=== PATIENT | male | born 1945 | race Caucasian/White ===

== ENCOUNTER → 2021-02-20 09:48 | Outpatient (BNVA) | payer MEDICARE, BC, SELFPAY | PROVIDERS: PCP Neuromusculoskeletal Medicine & OMM; Referring Provider Neuromusculoskeletal Medicine & OMM; Visit Provider Psychiatry & Neurology Neurology | DX: G62.9 Polyneuropathy, unspecified (principal) | CPT/HCPCS: 99204 ==

== ENCOUNTER → 2021-05-14 08:44 | Outpatient (BNVA) | payer MEDICARE, BC, SELFPAY | PROVIDERS: PCP Neuromusculoskeletal Medicine & OMM; Referring Provider Neuromusculoskeletal Medicine & OMM; Visit Provider Psychiatry & Neurology Neurology | DX: R26.89 Other abnormalities of gait and mobility (principal) | CPT/HCPCS: 95908 ==

== ENCOUNTER 2021-06-09 02:58 | Outpatient (CLI) | payer MEDICARE, BC, SELFPAY ==
--- NOTE | 2021-06-09 07:00 | DI.MRI_ITS ---
Exam(s) MR THORACIC SPINE WO EXAM: MR THORACIC SPINE WO CLINICAL HISTORY: ?post column d/o, balance disorder, R26.89. TECHNIQUE: Multiplanar multisequence MRI of the Thoracic spine was performed. CONTRAST MATERIAL: Noncontrast COMPARISON: MR MR CERVICAL SPINE WO from 06/09/2021 MR MR CERVICAL SPINE WO from 06/09/2021 FINDINGS: Bones: The vertebral body heights are well maintained. Alignment is satisfactory. The signal characte ristics are unremarkable. Cord: The thoracic cord is normal size and signal intensity. No intrinsic cord lesion is present. Discs: Osteophytes projecting anteriorly. No disc herniation or posterior bulge is present. No cent ral canal stenosis or neural foraminal narrowing. Soft tissues: Normal. Noncontrast IMPRESSION: degenerative disc changes with osteophytes projecting anteriorly. No neural foraminal narrowing or central canal stenosis. Normal cord signal. DATA REPOSITORY:
--- NOTE | 2021-06-09 07:00 | DI.MRI_ITS ---
Exam(s) MR CERVICAL SPINE WO EXAM: MR CERVICAL SPINE WO CLINICAL HISTORY: gait imbalance; posterior column def?, balance disorder, R26.89 TECHNIQUE: Multiplanar multisequence MRI of the cervical spine was performed without intravenous con trast. COMPARISON: No exams were available for comparison FINDINGS: Exam is limited by patient motion. BONES: Vertebral body heights are maintained. Intervertebral disc spaces are normal. Alignment is nor mal. Bone marrow signal intensity is within normal limits. High T1 signal lesion in the anterior C5 vertebral body and T3 vertebral body consistent with hemangiomas. CERVICAL CORD: Craniovertebral junction is unremarkable. The cervical cord is normal size and signal intensity. SOFT TISSUES: Unremarkable. C2-3: No disc herniation or bulge is identified. C3-4: No disc herniation or bulge is identified. C4-5: Moderate loss of disc height. Circumferentially projecting osteophytes encroach upon the centr al canal as well as both neural foramen.. C5-6: Marked loss of disc height. Concentric disc osteophytes encroaching upon the central canal and neural foramen. C6-7: No disc herniation or bulge is identified. C7-T1: No disc herniation or bulge is identified. IMPRESSION: Limited exam due to patient motion. Disc osteophytes cause moderate central canal stenosis at see se e 4 5 and C5-6 as well as bilateral neural foraminal narrowing. Cord signal is grossly normal. DATA REPOSITORY:
== END 2021-06-09 03:18 ==
PROVIDERS: PCP Neuromusculoskeletal Medicine & OMM; Visit Provider Psychiatry & Neurology Neurology
DX: R26.89 Other abnormalities of gait and mobility (principal); M48.02 Spinal stenosis, cervical region; M25.78 Osteophyte, vertebrae
CPT/HCPCS: 36415; 72141; 72146; 84432; 84443; 86800

== ENCOUNTER 2021-06-09 23:15 | Outpatient (CLI) | payer MEDICARE, BC, SELFPAY ==
[2021-06-09 11:47] LABS: TSH 0.03 uIU/mL (0.36-3.74)
[2021-06-11 10:42] LABS: Thyroglobulin Antibody <1.8 IU/mL (<1.8); Thyroglobulin Tumor Marker 8.9 ng/mL
== END 2021-06-09 23:16 | disposition home or self-care (01) ==
LOC: LBO 23:15
PROVIDERS: PCP Neuromusculoskeletal Medicine & OMM; Visit Provider Preventive Medicine Undersea and Hyperbaric Medicine
DX: C73 Malignant neoplasm of thyroid gland (principal)
CPT/HCPCS: 36415; 84432; 84443; 86800

== ENCOUNTER → 2021-06-23 08:44 | Outpatient (BNVA) | payer MEDICARE, BC, SELFPAY | PROVIDERS: PCP Neuromusculoskeletal Medicine & OMM; Referring Provider Neuromusculoskeletal Medicine & OMM; Visit Provider Psychiatry & Neurology Neurology | DX: R26.89 Other abnormalities of gait and mobility (principal); G95.9 Disease of spinal cord, unspecified | CPT/HCPCS: 99213 ==

== ENCOUNTER → 2024-04-10 09:33 | Outpatient (BNVA) | payer MEDICARE, BC, SELFPAY | PROVIDERS: PCP Neuromusculoskeletal Medicine & OMM; Referring Provider Neuromusculoskeletal Medicine & OMM; Visit Provider Student in an Organized Health Care Education/Training Program | DX: M17.11 Unilateral primary osteoarthritis, right knee (principal) | CPT/HCPCS: 99213 ==

== ENCOUNTER 2024-05-11 04:06 | Outpatient (CLI) | payer MEDICARE, BC, SELFPAY ==
[2024-05-11 15:47] LABS: HGB 14.7 g/dL (13.5-17.5); MCH 32.9 pg (27.0-33.0); MCHC 33.4 % (32.0-36.0); MCV 98 fL (80-95); MPV 9.3 fL (8.0-11.0); Platelet Count 174 10^3/uL (130-400); RBC 4.47 10^6/uL (4.36-5.78); RDW 12.9 % (11.8-14.1); RDW-SD 46.7 fL; WBC 5.46 10^3/uL (4.4-10.8)
[2024-05-11 16:19] LABS: Anion Gap 10.7 mmol/L (3-11); BUN 14 mg/dL (7-18); CO2 24.3 mmol/L (21.0-32.0); CREATININE 0.9 mg/dL (0.70-1.30); Calcium 9.4 mg/dL (8.5-10.1); Chloride 105 mmol/L (98-107); Estimated GFR 87.42 (mL/min/1.73m2); Glucose 98 mg/dL (74-106); Potassium 4.1 mmol/L (3.5-5.1); Sodium 140 mmol/L (136-145); TSH (W/Ref FT4) 0.08 uIU/mL (0.36-3.74)
[2024-05-11 16:37] LABS: FREE T4 1.63 ng/dL (0.76-1.46)
== END 2024-05-11 04:07 | disposition home or self-care (01) ==
LOC: LBO 04:06
PROVIDERS: PCP Neuromusculoskeletal Medicine & OMM; Visit Provider Student in an Organized Health Care Education/Training Program
DX: M17.11 Unilateral primary osteoarthritis, right knee (principal); Z01.818 Encounter for other preprocedural examination
CPT/HCPCS: 36415; 80048; 85027; 77073; 84439; 84443

== ENCOUNTER 2024-05-11 16:03 | Outpatient (CLI) | payer MEDICARE, BC, SELFPAY ==
--- NOTE | 2024-05-11 15:12 | DI.RAD_ITS ---
Exam(s) XR STANDING ALIGNMENT EXAM: XR STANDING ALIGNMENT CLINICAL HISTORY: TKR Planning. TECHNIQUE: 2D digital imaging was performed. COMPARISON: CR XR KNEE 3V RT from 11/25/2023 FINDINGS: 3 views Again noted is a left knee prosthesis which appears unchanged. Advanced degenerative changes in the medial compartment of the right knee are again noted, similar to previous. Left hip appears unremark able. There is no joint space narrowing in either hip. However on the right side there is a 1.6 x 0 .6 cm calcific density just above the femoral neck and another smaller oval 7 x 6 mm calcific density . These may be within the right hip joint although difficult to assess accurately without additional views. Both ankles appear unremarkable. IMPRESSION: Stable unchanged appearance of left hip prosthesis. Stable advanced degenerative changes right knee Two adjacent calcific densities are seen adjacent to the lower right femoral neck on these frontal vi ews. If clinically indicated additional views of the right hip can be performed for more accurate lo calization of these calcifications. There is vascular calcification in the posterior tibial arteries in both calves as well as within the peroneal arteries bilaterally. DATA REPOSITORY: RADIATION DOSE DELIVERED:
== END 2024-05-11 16:04 | disposition home or self-care (01) ==
LOC: DIORS 16:04
PROVIDERS: PCP Neuromusculoskeletal Medicine & OMM; Visit Provider Physician Assistant
DX: M17.11 Unilateral primary osteoarthritis, right knee (principal); Z01.818 Encounter for other preprocedural examination
CPT/HCPCS: 77073

== ENCOUNTER 2024-05-23 10:38 | Observation (INO) | payer MEDICARE, BC, SELFPAY ==
[2024-05-23] VITALS (58 sets, daily range): BP systolic 68–156; BP diastolic 38–100; PULSE 37–77; RESP 10–19; TEMP 36–37.2; O2SAT 93–98; BMI 34.0
--- NOTE | 2024-05-23 08:14 | W.ANESPRE ---
General Info Date of Service Date Performed: 05/23/24 Height: 5 ft 9 in Weight: 104.7 kg Body Mass Index (BMI): 34.0 Surgical Procedure: Operation Date: 05/23/24 14:25 Proposed Procedure Side Surgeon p Knee Total Arthroplasty Right Alex Will MD Meds Allergies and Home Medications Allergies Allergy/AdvReac Type Severity Reaction Status Date / Time No Known Allergies Allergy Verified 05/23/24 11:19 Home Medication ?Medication ?Instructions ?Recorded tamsulosin 0.4 mg capsule 0.4 mg PO QHS 11/25/20 acetaminophen 500 mg capsule 500 mg PO Q6H PRN 02/17/24 ibuprofen 200 mg capsule 200 mg PO Q6H PRN 02/17/24 levothyroxine 150 mcg capsule 150 mcg PO DAILY 02/17/24 acetaminophen 650 mg 650 mg PO Q12H PRN 05/23/24 tablet,extended release (8 Hour Pain Reliever) Current Visit Medications: Current Medications Generic Name Dose Route Start Last Admin Trade Name Freq PRN Reason Stop Dose Admin Acetaminophen 1,000 mg 05/23/24 06:00 Acetaminophen 500 Mg Tab PO 05/23/24 23:59 PREOP DRISS Celecoxib 400 mg 05/23/24 06:00 Celecoxib 200 Mg Cap PO 05/23/24 23:59 PREOP DRISS Gabapentin 300 mg 05/23/24 06:00 Gabapentin 300 Mg Cap PO 05/23/24 23:59 PREOP DRISS Ringer's Solution 1,000 mls @ 80 mls/hr 05/23/24 06:00 IV 05/23/24 23:59 INFUSION DRISS Cefazolin Sodium/Dextrose 2 gm in 50 mls @ 100 mls/hr 05/23/24 06:00 Ancef Duplex IVPB 05/23/24 23:59 PREOP DRISS Tranexamic Acid/Sodium Chloride 1,000 mg in 100 mls @ 600 mls/hr 05/23/24 06:00 IVPB 05/23/24 23:59 PREOP DRISS IV Miscellaneous Supplies 1 each 05/23/24 06:00 Iv Access IV 05/23/24 23:59 DIRECTED DRISS Sodium Chloride 0 ml 05/23/24 06:00 Normal Saline Flush 10 Ml Syr IV 05/23/24 23:59 PRN PRN Sodium Chloride 0 ml 05/23/24 06:00 Normal Saline 10 Ml Vial IJ 05/23/24 23:59 DIRECTED PRN Sterile Water 0 ml 05/23/24 06:00 Water,Injection,Sterile 10 Ml Vial IJ 05/23/24 23:59 DIRECTED PRN PFSH Active Problems Active Problems: Problem Status Onset Code Osteoarthritis of right knee Acute M17.11 Cervical myelopathy Acute G95.9 Balance disorder Acute R26.89 Peripheral neuropathy Acute G62.9 Medical History Medical History Nephrolithiasis Foot fracture, left Nocturia Urinary incontinence Snoring Disorder of hyperalimentation Osteoarthritis of carpometacarpal joint of thumb Osteoarthritis of knee Idiopathic osteoarthritis BPH (benign prostatic hyperplasia) Urinary tract obstruction Chronic rhinitis Hyperlipidemia Testicular hypofunction Hyperthyroidism Malignant neoplasm thyroid BCC (basal cell carcinoma) Surgical History Surgical History Status post total left knee replacement (07/20/23) 07/20/2023 Dr Chowdhury- [facility] Orthopedics S/P ORIF (open reduction internal fixation) fracture left foot History of tonsillectomy History of appendectomy History of thyroidectomy History of esophagogastroduodenoscopy (EGD) Hx of colonoscopy History of urethral stent History of excision of lesion Tobacco Smoking/Tobacco Use Status: Never Alcohol Alcohol Intake: current Alcohol intake frequency: a few times a week Alcohol type: beer, wine and hard liquor Substance Use Substance use: Never Vital Signs and Lab Results Vital Signs Most Recent Vital Signs in EMR: Temp Pulse Resp BP Pulse Ox 36.6 C 45 L 16 113/66 96 05/23/24 11:09 05/23/24 11:09 05/23/24 11:09 05/23/24 11:09 05/23/24 11:09 Lab Results Blood Type / Crossmatch: No Data to Display Complete Blood Count: White Blood Count 5.46 10^3/uL (4.4-10.8) 05/11/24 15:33 Red Blood Count 4.47 10^6/uL (4.36-5.78) 05/11/24 15:33 Hemoglobin 14.7 g/dL (13.5-17.5) 05/11/24 15:33 Hematocrit 44.0 % (40.0-50.0) 05/11/24 15:33 Platelet Count 174 10^3/uL (130-400) 05/11/24 15:33 Complete Metabolic Panel: Sodium 140 mmol/L (136-145) 05/11/24 15:33 Potassium 4.1 mmol/L (3.5-5.1) 05/11/24 15:33 Chloride 105 mmol/L (98-107) 05/11/24 15:33 Carbon Dioxide 24.3 mmol/L (21.0-32.0) 05/11/24 15:33 BUN 14 mg/dL (7-18) 05/11/24 15:33 Creatinine 0.9 mg/dL (0.70-1.30) 05/11/24 15:33 Est GFR (CKD-EPI 2020) 87.42 (mL/min/1.73m2) 05/11/24 15:33 Calcium 9.4 mg/dL (8.5-10.1) 05/11/24 15:33 Glucose 98 mg/dL (74-106) 05/11/24 15:33 Liver Function Panel: No Data to Display Coagulation Panel: No Data to Display Cardiac Panel: No Data to Display Arterial Blood Gas: No Data to Display Venous Blood Gas: No Data to Display Pancreas Panel: No Data to Display Thyroid Panel: Thyroid Stimulating Hormone (TSH) 0.08 uIU/mL (0.36-3.74) L 05/11/24 15:33 Infectious Disease: No Data to Display Blood Cultures: No Data to Display Toxicology Panel: No Data to Display Anesthesia Assessment and Plan Anesthesia History Personal History: No History of Anesthesia Complications Family History: No Family History of Anesthesia Complications Exercise Tolerance Exercise Tolerance: Metabolic Equivalents>4 Cardiac & Pulmonary Exam Cardiac Exam: Normal S1/S2 Heart Sounds Pulmonary Exam: Clear Bilateral Breath Sounds Implantable Cardiac Device Does patient have a Pacemaker or an ICD?: No Airway Exam Known Difficult Airway: No Mallampati Class: 3 Mouth Opening: Normal (> 3cm) Thyromental Distance: Greater than 3 cm Neck Range of Motion: Limited ROM Neck Circumference: Normal Teeth Condition: Normal Dentition ASA Classification ASA Score: ASA 3 Emergency Case?: No NPO Status NPO Status: NPO Clears >2 hours, Solids >8 hours Anesthesia Plan Resuscitation Status: Full Code Anesthesia Technique: General Anesthesia Airway Planned: Endotracheal Tube Pain Management: Surgeon and patient request nerve block Monitors Used: Standard Monitors Preoperative Comments:: 79 yo male for TKA. Has had urinary retention post op in the past which was very frustrating for them. After his last neck surgery he has some numbness in his right shoulder. Sig PMHx: thyroid CA (2020 s/p thyroidectomy, currently on levothyroxine with low TSH, he is being followed by [facility] endocrine), s/p cervical lymph node dissection 2/2 thyroid CA mets, cervical stenosis/myelopathy, peripheral neuropathy, never smoker, occ EtOH. Previous Anes: - [facility] cervical lymph node removal, easy mask, mac 3 grade 1 - [facility] – [place] thyroidectomy, difficult mask, mac 3 grade 2. Discussed risk, benefits of spinal vs GA. Given the history of urinary retention he is electing for a GA.
[2024-05-23] MEDS: Gabapentin 300 MG CAP PO (11:23)
[2024-05-23] MEDS: Celecoxib 200 MG CAP 400 MG PO (11:23)
[2024-05-23] MEDS: Lactated Ringers 1,000 ML 80 ML IV (11:54)
[2024-05-23] MEDS: Acetaminophen 500 MG TAB 1000 MG PO ×2 (12:14→20:05)
[2024-05-23] MEDS: ceFAZolin 2 GM/50 ML BAG IVPB (13:47)
[2024-05-23] MEDS: TRANEXAMIC ACID/SOD. CHL. 1,000 MG/100 ML BAG 600 MG IVPB (13:50)
--- NOTE | 2024-05-23 14:07 | W.ANESNERVE ---
Nerve Block Single Injection Procedure Date and Time Date Performed: 05/23/24 Procedure Start: 13:04 Location Where Procedure Performed Procedure Location: Day Surgery Unit Reason Performed: Postoperative Analgesia Requesting Provider: Alex Will Timeout Performed Timeout Performed: Yes Monitoring Used ECG, Blood Pressure and SpO2 Sterility Sterility: Hand Hygiene, Surgical Cap, Surgical Mask, Sterile Gloves and Chlorhexidine Sedation Given During Procedure Sedation Given (Indicate Dose Given): No Sedation given Patient Mental Status Patient Mental Status: Awake Nerve Block 1st Nerve Block: Laterality: Right Block Type: Adductor Canal Ultrasound Image Saved?: Yes Needle / Catheter Used: 100mm SonoPlex II Local Anesthetic Bolus (Indicate Dose Given): Lidocaine used for local infiltration of skin and Bupivacaine 0.25% Dose:: 12 mL Additives (Indicate Dose Given): None Ultrasound: Sterile probe cover and gel used Nerve Stimulator: Supplement to Ultrasound use and No twitch or parasthesia noted < 0.5 mA Paresthesia: None Procedure Tolerated: No Complications Procedure Outcome: Successful Performed By: Ernesto Hernandez
--- NOTE | 2024-05-23 15:40 | W.ANESPOSTOP ---
Postoperative Evaluation Date, Time and Location Date Performed: 05/23/24 Time Performed: 15:40 Patient Location: PACU Vital Signs Most Recent Imported Vital Signs: Most Recent Vital Signs Temp Pulse Resp BP Pulse Ox 36.4 C L 67 16 113/46 L 95 05/23/24 15:37 05/23/24 15:37 05/23/24 15:37 05/23/24 15:37 05/23/24 15:37 Pain Score Most Recent Pain Score: Most Recent Pain Score Pain Level 0 05/23/24 13:11 Assessment Mental Status: Awake (Alert & Oriented to Patient Baseline) Airway and Respiratory Function: Patent airway with normal (patient baseline) respiratory exam Cardiovascular Function: Hemodynamically Stable Hydration Status: Adequately Hydrated Nausea & Vomiting: No Nausea or Vomiting Pain: Pain is tolerable per patient Peripheral Nerve Block: Patient did not receive a nerve block
[2024-05-23] MEDS: HYDROmorphone 2 MG/ML SYR IVP ×3 (15:58→16:20)
--- NOTE | 2024-05-23 16:48 | IN_ITS ---
PT Notes Visit Reasons: R KNEE TOTAL Physical Therapy Day Surgery Initial Evaluation Date: 05/23/2024 Referring Doctor: Dr. Will PT Orders: PT CONSULT: PT assessment status post Ortho surgery Precautions: Weightbearing as tolerated right lower extremity Patient Profile/Admitting Diagnosis: Patient is a 79-year-old man presenting status post elective right TKA secondary to OA on 05/23/2024. Postop uncomplicated. PMHX: Osteoarthritis of right knee (Chronic) Cervical myelopathy (Acute) Balance disorder (Acute) Peripheral neuropathy (Acute) Medical History Nephrolithiasis Foot fracture, left Nocturia Urinary incontinence Snoring Disorder of hyperalimentation Osteoarthritis of carpometacarpal joint of thumb Osteoarthritis of knee Idiopathic osteoarthritis BPH (benign prostatic hyperplasia) Urinary tract obstruction Chronic rhinitis Hyperlipidemia Testicular hypofunction Hyperthyroidism Malignant neoplasm thyroidBCC (basal cell carcinoma) Surgical History Status post total left knee replacement (07/20/23) 07/20/2023 Dr Chowdhury- [facility] Orthopedics[facility]/P ORIF (open reduction internal fixation) fracture left footHistory of tonsillectomy History of appendectomy History of thyroidectomy History of esophagogastroduodenoscopy (EGD) Hx of colonoscopy History of urethral stent History of excision of lesion Social History/Home Situation: [] Equipment Owned/DME: [facility] Subjective: Patient patient reports he feels good agreeable to participate. After transfers patient patient reported lightheadedness return to sit and vitals taken with nurse present. Objective: Vitals: seated 123/77 stand: 68/38 symptomatic; seated with BLE elevated: 113/60 General Observation: Patient upright in chair Mental Status: Alert and oriented x 4 Pain: Right knee 2/10 ROM: Right Upper Extremity: Within functional limits Left Upper Extremity: Within normal limits Right Lower Extremity: Hip and ankle within normal limits ; knee 0-95 Left Lower Extremity: Within normal limits Strength: Right Upper Extremity: Shoulder 4/5 elbow wrist hand 5/5 Left Upper Extremity: 5/5 Right Lower Extremity: Glutes 3/5 quads 3/5, hamstring 3 -/5, ankle 3/5 Left Lower Extremity: 5/5 Sensation: Intact Bed Mobility/Transfers: Supine to sit CGA Sit to stand CGA Stand to sit CGA Bed to chair CGA with FWW Gait: Ambulate with FWW CGA 5 steps increased weightbearing through bilateral upper extremities, decreased step length Distance limited due to symptoms of orthostatic hypotension. Stairs: Unable due to orthostatic hypotension Balance: Static Sitting: Normal Dynamic Sitting: Normal Static Standing: Fair + with FWW Dynamic Standing: Fair with FWW Special Tests: Mobility Limitations Standardized Measure [facility] 6 clicks Basic Mobility Inpatient Short Form: Raw Score: 16 CMS Score: 54.16% disability Informed Consent/Education: Patient instructed in purpose of PT consult. Packet containing TKA exercise protocol has been given to patient. Education and training on initial set of exercises that can be done at home have been completed with patient. Assessment: Patient is a 79-year-old male presenting status post right TKA secondary to OA. Upon assessment of out of bed functional mobility patient developed signs and symptoms of orthostatic hypotension vitals taken MD notified. MD in to assess patient and decision was made for patient to be admitted to the medical surgical unit overnight for further medical management prior to discharge to home. Patient presents with clinical signs and symptoms consistent with current/admitting diagnoses that have resulted to mobility limitations, gait ins tability, generalized weakness, and impairment of motor control as demonstrated by the following impairment level findings: 1. Decreased strength to right knee major muscle groups 2. Impaired standing balance 3. Limitation of joint range of motion in right knee 4. Orthostatic hypotension Impairments are contributing to the following functional limitations: 1. Inability to safely ambulate without assistive device 2. Increase completion time for mobility ADL performance 3. Increased fall risk Patient is assessed as a moderate complexity based on the following: History: 79-year-old male with impairment level findings, functional limitations, and past medical history as indicated above Examination: Demonstrable impairment in strength, balance, and mobility level with underlying impairments and functional limitations as documented above Presentation: Stable Decision Making: Moderate Goals: 1. Supervision bed mobility 2. Supervision transfers with FWW 3. Supervision ambulating with FWW greater than 50 feet 4. Supervision 2 steps with rail to safely enter and exit home 5. Independent with home exercise program Plan of Care/Treatment Plan: PT evaluation and 1-2 treatments DISCHARGE RECOMMENDATIONS: Home with outpatient PT as scheduled when medically appropriate for discharge TREATMENT CODE/TIME: 09266, [id number] Thank you for the opportunity to participate in the care of this patient. Please sign an return this page within 30 days if you agree with the above POC. Thank you! Physician Signature Date [facility]
[2024-05-23] MEDS: Midodrine 2.5 MG TAB 5 MG PO (18:30)
[2024-05-23] MEDS: Docusate Sodium 100 MG CAP PO (20:05)
[2024-05-23] MEDS: Celecoxib 200 MG CAP PO (20:05)
[2024-05-23] MEDS: ceFAZolin 1 GM/50 ML BAG IVPB (20:06)
[2024-05-23] MEDS: Aspirin E.C. 81 MG TABEC PO (20:06)
[2024-05-23] MEDS: Tamsulosin 0.4 MG CAPCR PO (20:06)
--- NOTE | 2024-05-23 20:39 | W.PM.OP ---
Date of service: 05/23/24 Time of Service: 13:30 Operative Note Operative Note DATE OF PROCEDURE: 05/23/24 PRE-OP DIAGNOSIS: Right Knee Osteoarthritis POST-OP DIAGNOSIS: same PROCEDURE: Right Total Knee Replacement with Intraoperative Navigation SURGEON: Alex Will REPORTING MANAGER: Rupa Pillai ANESTHESIA TYPE: General LMA/ETT Refer to Anesthesia Record ESTIMATED BLOOD LOSS: 100 PATHOLOGY: none sent TOURNIQUET TIME: 0 COMPLICATIONS: None Patient was transported to: PACU Patient's condition: stable Implants: 1. Depuy Attune Cementless Cruciate Retaining Femoral Component, Size 8 2. Depuy Attune Cementless Fixed Bearing Tibial Component, Size 7 3. Depuy Attune 8x6 CR/FB Poly 4. Depuy Attune Patellar Component, Size 38 Indications: I have seen Blake in clinic for symptoms of RIGHT knee arthritis, confirmed with radiographic findings. blake has exhausted nonoperative methods and was having significant limitations in daily function and desired better function and less pain. I discussed the technical details of a knee replacement. I explained the risks of the procedure to include, but not limited to, bleeding, infection, pain, stiffness, fracture, damage to nerves and vessels, damage to muscles and tendons, loosening, need for repeat procedure, blood clot and cardiopulmonary demise. Despite these risks, Blake elected to proceed. Findings: There was significant signs of arthritis throughout the knee in all 3 compartments but with notable posteromedial tibial deformity and large osteophytes. Procedure Description: Blake was greeted in the preoperative holding area where the correct side was identified and marked. The consent was reviewed with the patient and signed. The history and physical was updated. All questions were answered. Preoperative mediacations were administered: Acetaminophen 1000mg, Celebrex 400mg, and Gabapentin 300mg. An adductor canal block was then administered by the anesthesia team in the PACU. Blake was taken back to the operating room. A general anesthestic was then administered. The patient was placed into the supine position on the operating room table. A nonsterile tourniquet was placed high onto the leg. Posts were placed for positioning during the procedure. All bony prominences were well padded. Prophylactic antibiotics in the form of Cefazolin were administered. 1g of Tranxemic Acid was given intravenously within 30 minutes of incision. The right leg was then prepped with Chloraprep and draped in a standard fashion with impervious stockinette. A second prep with Chloraprep was performed prior to application of Iodine impregnated skin protection. A timeout to confirm correct identity, side and site, procedure, allergies, anesthesia, and medical concerns was performed. With the knee in some flexion, a midline incision was made overlying the knee. Full thickness skin flaps were raised once the extensor mechanism was encountered. These were raised medially and laterally. Any bleeding was controlled with electrocautery. Once the extensor mechanism was fully exposed, a medial parapatellar arthrotomy was performed in a flexed position. All bleeding from the arthrotomy and the geniculate arteries was coagulated. A medial subperiosteal peel was performed with electrocautery to the midcoronal plane. Due to the significant varus deformity the entire medial tibial plateau was exposed. The fat pad was removed while keeping the patellar tendon protected. The anterior distal femur synovium was removed for later visualization. The ACL and PCL were resected and the anterior horn of the lateral meniscus was transected. The knee was then flexed with the patella everted. Large osteophytes from the tibia were removed. Large osteophytes from the femur were removed. A single starting pin was then placed 1cm anterior to the PCL insertion and the notch in the direction of the femoral head. The OrthoAlign device was applied over the pin. It was oriented to be in line with the epicondylar axis and the trochlear groove. It was then pinned into place. The navigation computer was then turned on and calibrated. The distal femur cut was set at 0.5 degrees varus and 3.5 degrees flexion. The distal femur cutting guide then was positioned for a 9mm cut. The distal femur was cut with an oscillating saw while protecting the soft tissues. The tibia was then addressed. The OrthoAlign device was placed over the tibial tubercle and medial tibia and secured into position. Once again, OrthoAlign was calibrated and then set for a 1.5 degree varus cut and 5.5 degrees of posterior slope. With this locked into position, the cut thickness stylus was used to assess cut thickness. The medial side, most involved side, was set for a 3mm cut from the low corner of the posteromedial tibia. This was then held in position and pinned into place with 2 additional pins and a cross pin for stability. The medial and lateral collateral ligaments were protected and the cut was performed. With this completed, it was assessed and noted to be of appropriate dimensions. The guide and OrthoAlign was removed. A spacer block was inserted and the knee was brought into extension to ensure enough space was present. . The Orthoalign gap balancing device was then placed in extension. This was used to ensure that the ligaments were properly balanced with up to 2 to 3 mm laxity laterally compared medially. The extension gap was measured as 18mm. The knee was then brought into 90 degrees of flexion and the ligament candy depositing machine operator was once again placed. Under the same amount of force the flexion gap was measured. The Attune specific jig was placed and the flexion gap was made to match the extension gap. The femur was then sized as a size 8. The 4-in-1 cutting guide was the placed. An wandy wing was used to confirm appropriate position of the anterior cut to avoid notching. This cutting guide was ensured to be flush on the cut surface and then pinned into place with headed pins. While protecting the soft tissues, quad tendon, and collateral ligaments, the anterior and posterior cuts were performed with a saw. The central two pins were removed and the posterior and anterior chamfers were cut next. The notch-cutting guide was placed. This was pinned to lateralize the femoral component as much as possible while keeping it flush on the cut surface. This was then pinned into position. A saw was used to make the notch cut. A rasp smoothed the cut surfaces. The medial and lateral menisci were removed. A trial femoral component was then inserted, impacted down to the cut surfaces, and the lug holes were drilled. A provisional trial tibial component was placed and the knee was brought through range of motion. There was noted to be excellent extension and flexion. There was no significant instability. The patella was tracking without thumbs. A size 6mm polyethylene component provided the best range of motion and stability with less than 2mm gapping with medial and lateral stress and full extension without significant hyperextension. The tibial cut surface was fully exposed. The tibia was then sized as a 7. The tibia had been previously marked during trialing to correspond to the center of the tibial component to help with rotation. The trial was aligned to this jose, approximately rotated to the medial 1/3rd of the tibial tubercle. The trial was pinned into place. The tibia was prepared with a reamer and a keel punch and lug holes. The knee was then brought into extension and the patella was measured as 28mm. Using the patellar clamp and cut guide, this was resected to a flat surface with at least 13mm of thickness remaining. The size 38 patella fit the best. This was oriented and then clamped into position. The lugs were drilled. The trial components were removed. The final components were opened on the back table. The periosteal and capsular tissues, especially posteriorly, around the knee were then systematically injected with a periarticular cocktail consisting of 246mg of Ropivacaine, 0.5mg of Epinephrine, 0.08mg of Clonidine, and 30mg of Ketorolac, diluted to 100cc. On the back table, with the implants opened, the cement was mixed. One batch of high viscosity cement was prepared with vacuum assistance. After the cement was ready a small amount was placed on the cut surface of the patella and the patellar button was clamped into position and held. While the cement was hardening, the cementless knee components were placed. Starting with the tibial component, the tibia was subluxed anteriorly and the lug holes of the component were lined up. The tibia was then impacted with an impactor and mallet until the tibial component was in contact with the tibia. Then, the femoral component was inserted. The lug holes were aligned and the component was impacted into position. The final polyethylene component was inserted. The knee was irrigated with Surgiphor Betadine solution. This was allowed to sit in the knee for 3 minutes and then it was thoroughly irrigated out with saline. After the cement had finally cured, approximately 15min, the clamp was removed from the patella and the knee was taken through range of motion. The patella was tracking with a no-thumbs technique. The capsule was then reapproximated with a No. 1 Vicryl at multiple locations. The capsule was finally closed with a No. 2 Stratafix, barbed suture. Deep tissues were then reapproximated with 0 Vicryl and 2-0 Vicryl. The skin was closed with a running 3-0 Monocryl in a subcuticular fashion. This was reinforced with skin glue. A Mepilex silver dressing was applied along with a [id number] MI wrap. A CryoCuff was applied. Tarik was transferred to the hospital bed without difficulty an suffering no apparent complication. Tarik has a good prognosis. Physical therapy will start today and without restrictions, weight-bearing as tolerated. Aspirin 81mg BID will be used for DVT prophylaxis.
[2024-05-24] MEDS: Midodrine 2.5 MG TAB 5 MG PO (02:03)
[2024-05-24] MEDS: ceFAZolin 1 GM/50 ML BAG IVPB ×2 (03:11→11:50)
[2024-05-24 04:37] VITALS: BP 114/74; PULSE 66; RESP 18; TEMP 37; O2SAT 94
[2024-05-24] MEDS: Levothyroxine 150 MCG TAB PO (06:26)
[2024-05-24] MEDS: Aspirin E.C. 81 MG TABEC PO (07:40)
[2024-05-24] MEDS: Acetaminophen 500 MG TAB 1000 MG PO ×2 (07:40→13:10)
[2024-05-24] MEDS: Pantoprazole 40 MG TABCR PO (07:41)
[2024-05-24] MEDS: Celecoxib 200 MG CAP PO (07:41)
[2024-05-24] MEDS: Dexamethasone 4 MG TAB PO (07:42)
[2024-05-24] MEDS: Docusate Sodium 100 MG CAP PO (07:42)
[2024-05-24 08:15] VITALS: BP 117/63; PULSE 49; RESP 16; TEMP 36.5; O2SAT 95
--- NOTE | 2024-05-24 08:30 | PDOC.CMDIS ---
Date of service: 05/24/24 Time of Service: 08:31 LACE Index Scoring Tool Questions: Length of Stay (in days): 1 Was the patient admitted via the E.D.?: No E.D. Visits: 0 Answers: Total Score: 1 Risk of Readmission: Low Risk Care Management Discharge Plan Reason for Hospitalization: Total Right Knee Discharge Plan: Tarik will discharge home via private vehicle with family. He will follow up with community providers and his discharge plan of care as instructed. Follow up with Ortho on 06/05/24 as scheduled. Outpatient PT is recommended. No new services. Patient/Family Education Needs: Review discharge instructions, limitations, medications and plan to follow up with community providers. Discuss ask me three. Services Needed at Discharge: Physical Therapy (Outpatient within 2 weeks) SDOH Health Related Social Needs: No Data to Display
--- NOTE | 2024-05-24 10:01 | DSE_ITS ---
Date of service: 05/23/24 Time of Service: 13:25 DS: Diagnosis Discharge Diagnosis (1) Osteoarthritis of right knee: Status: Resolved Discharge Plan Disposition Patient Disposition: Home Condition: Good Discharge Details Reason For Visit: R KNEE TOTAL Admit Date/Time: 05/23/24 10:42 Admit Provider: Alex Will Attending Provider: Alex Will Primary Care Provider: Tarik Bhardwaj Hospital Course Hospital Course: Patient was admitted to the medical/surgical floor following the procedure. The surgery was tolerated well without any notable medical, surgical, or anesthetic complications except for some mildly symptomatic orthostatic hypotension in the initial postoperative period. Mobilization began postoperatively. He was voiding spontaneously. Vitals were stable. Physical therapy worked with the patient and was cleared for discharge home. No acute medical issues. Pain was controlled on oral regimen. Home Meds and New Rx's Prescriptions: New acetaminophen 500 mg tablet 1,000 mg PO Q8H PRN Qty: 90 0RF Rx Instructions: Take two tablets up to every 8 hours as needed for pain aspirin 81 mg tablet,delayed release (DR/EC) 81 mg PO BID 30 Days Qty: 60 0RF celecoxib [Celebrex] 200 mg capsule 200 mg PO BID PRNQty: 60 0RF Rx Instructions: Take one tablet twice daily for pain and inflammation docusate sodium [Colace] 100 mg capsule 100 mg PO BID Qty: 30 0RF pantoprazole 40 mg tablet,delayed release (DR/EC) 40 mg PO DAILY Qty: 14 0RF dexamethasone 4 mg tablet 4 mg PO DAILY Qty: 2 0RF Rx Instructions: Take one tablet once daily for two days gabapentin 300 mg capsule 300 mg PO QHS Qty: 14 0RF Rx Instructions: Take one tablet at bedtime oxycodone 5 mg tablet 5 mg PO Q4H PRNQty: 18 0RF Rx Instructions: Take one tablet up to every 4 hours as needed for severe postoperative pain Continued tamsulosin 0.4 mg capsule 0.4 mg PO QHS levothyroxine 150 mcg capsule 150 mcg PO DAILY Discontinued acetaminophen 500 mg capsule 500 mg PO Q6H PRN ibuprofen 200 mg capsule 200 mg PO Q6H PRN acetaminophen [8 Hour Pain Reliever] 650 mg tablet extended release 650 mg PO Q12H PRN Discharge Instructions Additional Instructions: Total Knee Discharge Instructions Activity: The most important activity is to walk and to work on gentle motion (both flexion and extension). You should try to take short walks a few times a day. It is important that when resting you work on keeping the knee straight. Avoid putting a pillow behind the knee as this will encourage flexion. Work on range of motion exercises as provided by Physical Therapy. - Start outpatient physical therapy within 2 weeks. - You should wear the GUIDO hose on both legs for 2 weeks. You may remove these at night. You may also use any compression sock in place of the GUIDO hose. - Utilize [employer] to review exercises, see videos on exercises and obtain basic information pertaining to your surgery and your recovery. Dressing: Remove the Darrel wrap by 2 days after your surgery and put on the GUIDO stocking given to you from the hospital. Keep the surgical dressing (underneath the DARREL wrap) in place for at least one week. After the first week it may be removed and replaced with light gauze and tape or nothing. The wound and dressing may get wet after 3 days but avoid soaking the dressing or otherwise it will need to be changed. Many people prefer covering the dressing with cling wrap (saran wrap) to minimize it from getting soaked. If it gets wet, just pat dry. If it starts to peel off then it will need to be changed. Medications: - You should take Tylenol and anti-inflammatory Celebrex as your primary pain control medications. If the Celebrex is too expensive or not covered, please call the office for another alternative (Advil/Ibuprofen or Naproxen/Aleve) - You have been prescribed a stronger pain medication Oxycodone for breakthrough pain, take as needed as prescribed. - You have also been prescribed a stomach acid reduction agent Pantoprozole to help reduce stomach acid and reflux. - You have been prescribed Gabapentin to take at night for restlessness and nerve pain. - You will be taking Aspirin 81mg twice a day for DVT prevention unless instructed otherwise. - You have also been prescribed Decadron to take to control post-operative nausea and pain. You will start this tomorrow. - If you have constipation you should take Colace (which has been prescribed) or Miralax (which is available [id number]). It takes most people 3-4 days to have a bowel movement. Follow-up: 2 weeks If you have any acute concerns or questions, please do not hesitate to contact the office at [phone]. You may contact Dr. Will with any questions after hours through the hospital at [phone] or on his cell phone at [phone]. Stand Alone Forms: Anesthesia Discharge InstJeison, Cecily.Nerve Block Instructions, Reinier Smart (DSU) Referrals: Alex Will MD [ [facility] STAFF PHYSICIAN] - 06/05/24 10:45 am Activity:: Activity as Tolerated Equipment/Supplies:: Walker Diet:: As Tolerated Discharge Orders Discharge Orders: Discharge Order (Routine); Ordered 05/24/24 Ordered By: Alex Will DS: Summary Time Spent with Patient providing and/or coordinating discharge services: Less than 30 minutes Status at Discharge Functional status at discharge: uses cane/walker Overall status at discharge: patient is progressing back to baseline Mental Status: mental status grossly normal Speech and Movement: speech and movement normal Mood: congruent mood Affect: normal affect Quality:SDOH Health Related Social Needs: No Data to Display Exam Narrative Exam Narrative: Sitting up in the chair. No acute distress. Alert and orient x 3. Evaluation of the right knee shows a clean dry and intact dressing. Able straight leg raise. Knee extension intact. Sensation intact to light touch over the deep and superficial peroneal nerve and tibial nerve. Intact ankle dorsiflexion, plantarflexion, great toe extension, great toe flexion. Psych Mental Status: mental status grossly normal Speech and Movement: speech and movement normal Mood: congruent mood Affect: normal affect DS: Data Vitals/I&O Vitals and I&O: Vital Signs Temperature 97.9 F 05/23/24 11:09 Pulse 45 L 05/23/24 11:09 Pulse Rhythm Irregular 05/23/24 11:09 Respiratory Rate 16 05/23/24 11:09 Respiratory Depth Normal 05/23/24 11:09 Blood Pressure 113/66 05/23/24 11:09 Pulse Oximetry 96 05/23/24 11:09 Oxygen Delivery Method Room Air 05/23/24 11:09 Oxygen Flow Rate 0 05/23/24 11:09 Pain Level 0 05/23/24 11:09 Intake & Output 05/22/24 05/23/24 05/23/24 23:59 11:59 23:59 Weight 230 lb 13.184 oz 230 lb 13.184 oz PFSH All Active Problems (Updated 05/23/24 @ 14:25 by Miladis Saenz RN) History of total right knee replacement (Acute 05/23/24) Cervical myelopathy (Acute) Balance disorder (Acute) Peripheral neuropathy (Acute) Medical History (Updated 05/23/24 @ 14:25 by Miladis Saenz RN) Nephrolithiasis Foot fracture, left Nocturia Urinary incontinence Snoring Disorder of hyperalimentation Osteoarthritis of carpometacarpal joint of thumb Osteoarthritis of knee Idiopathic osteoarthritis BPH (benign prostatic hyperplasia) Urinary tract obstruction Chronic rhinitis Hyperlipidemia Testicular hypofunction Hyperthyroidism Malignant neoplasm thyroid BCC (basal cell carcinoma) Surgical History (Updated 05/23/24 @ 14:25 by Miladis Saenz RN) Status post total left knee replacement (07/20/23) 07/20/2023 Dr Chowdhury- [facility] Orthopedics S/P ORIF (open reduction internal fixation) fracture left foot History of tonsillectomy History of appendectomy History of thyroidectomy History of esophagogastroduodenoscopy (EGD) Hx of colonoscopy History of urethral stent History of excision of lesion Family History Father Prostate cancer TOOK OUT PART OF PROSTATE. UNSURE IF IT WAS CANCER Mother Endocarditis Social History Smoking/Tobacco Use Status: Never Smoking risk assessment performed?: Yes Alcohol Intake: current Alcohol Intake frequency: a few times a week Alcohol type: beer, wine and hard liquor Drug use: Never Substance use type: does not use Household members: spouse Housing: house Number of Children: 3 number of grandchildren: 2 current occupation: Retired teacher Pets and animals: No What is your relationship status?: Panel score (0-1 are the most socially isolated patients): 1 What type of physical activity do you participate in: walking and bicycling Seatbelt use: always Do you feel safe at home: Yes Do you feel safe in your relationship?: Yes Time Spent with Patient Time Spent with Patient: <45 minutes Time was spent: preparing to see the patient(eg.review tests), indepentently interpreting results, counseling the patient and care coordination
--- NOTE | 2024-05-24 10:04 | PT.INTREAT ---
PT Notes Visit Reasons: R KNEE TOTAL Inpatient Physical Therapy Treatment Note [facility] Date: 05/24/2024 PRECAUTIONS:activity as tolerated WBAT RLE SUBJECTIVE: Pt reports feeling much better than yesterday after surgery. OBJECTIVE:pt presented semireclined with cryocuff in place to right knee. His at bedside. He agreeable to participate and motivated to return home today.? PAIN: 3/10 right knee VITALS: ? Pre-Treatment: 117/63 ? Therapeutic Activities (31014f): Direct one-on-one instruction in dynamic activities to improve functional performance. ? BED MOBILITY/TRANSFERS? Rolling L/R: Independent Supine-sit: Independent? Sit-supine: Independent ? Sit-stand:SBA with cue to push up ? Stand-sit: Independent ? Bed-Chair: SBA with FWW ? Chair-bed: SBA with FWW Provided skilled cues and instruction on performance and technique throughout. Gait Training (48366z6): Direct one-on-one instruction and skilled instruction in: [] employing an assistive device [] modified weight-bearing status [X] movement sequencing [] turning and movement with proper form [] Provided verbal cues for equipment management and technique [X] Provided instruction in gait pattern [X] Patient education regarding pacing and breathing techniques to maximize activity tolerance? GAIT? Assistive Device: FWW ? Weight bearing: WBAT RLE Assist: Supervision? Distance: 200 feet? Deviation: Decreased right knee flexion during swing phase, right hip hike during swing phase, increase left lateral weight shift during right swing phase. Slight antalgic gait right lower extremity ? STAIRS: 2 stairs with front wheel walker supervision ? Therapeutic Exercises (11436b5): Direct one-on-one instruction in therapeutic exercises to develop strength, endurance, range of motion and flexibility. ? Exercises 10 reps ? Supine: Quad sets ankle pumps, heel slides, straight leg raise shortened range of motion Sit: Long arc quads heel slides seated quad set ? Provided skilled instruction in proper exercise performance Provided skilled manual cues to facilitate proper muscle recruitment and/or form: [] ASSESSMENT:?Patient is 79-year-old man status post right TKA with postop orthostatic hypotension. Patient able to demonstrate functional mobility and ambulation with FWW without signs and symptoms of hypotension. He performed 2 stairs utilizing front wheel walker with supervision. His is present and able to provide appropriate supervision. Patient demonstrates strong quad contraction with no lag during SLR in shortened Range. He requires cues for knee flexion on right during swing phase she prefers to hold knee in extension utilizing excessive hip hike to clear right foot on floor. His HEP per TKA protocol reviewed with patient and he demonstrates ability to perform independently. Range of motion right knee: 0 to 92 degrees AAROM. Patient is safe for discharge to home when medically appropriate. PLAN: Continue PT for strengthening until discharge TREATMENT CODE/TIME: 11599/65545 ([id number]) DISCHARGE RECOMMENDATION: Home with outpatient PT as scheduled
[2024-05-24 11:40] VITALS: BP 117/63; PULSE 47; RESP 17; TEMP 36.8; O2SAT 97
== END 2024-05-24 13:17 | disposition home or self-care (01) ==
LOC: MS 05-24 11:59 → SUR 05-24 12:00 → MS 05-24 12:00
PROVIDERS: Admitting Provider Student in an Organized Health Care Education/Training Program; PCP Neuromusculoskeletal Medicine & OMM; Visit Provider Student in an Organized Health Care Education/Training Program
PROC: (CPT 27447; principal; 2024-05-23 14:15)
DX: M17.11 Unilateral primary osteoarthritis, right knee (principal); E78.5 Hyperlipidemia, unspecified; N40.0 Benign prostatic hyperplasia without lower urinary tract symptoms; N13.8 Other obstructive and reflux uropathy; E05.80 Other thyrotoxicosis without thyrotoxic crisis or storm
CPT/HCPCS: 20985; 27447; 76942; 97110; 97116; 97162; C1776; G0378; J0665; J0690; J1100; J1170; J2405; J2704; J8540

== ENCOUNTER 2024-05-23 15:44 | Day surgery (SDC) | payer MEDICARE, BC, SELFPAY | END 2024-05-23 15:45 | disposition home or self-care (01) | LOC: SUR 05-24 15:44 | PROVIDERS: PCP Neuromusculoskeletal Medicine & OMM; Visit Provider Student in an Organized Health Care Education/Training Program ==

== ENCOUNTER 2024-06-05 11:41 | Outpatient (CLI) | payer MEDICARE, BC, SELFPAY ==
--- NOTE | 2024-06-05 10:30 | DI.RAD_ITS ---
Exam(s) XR STANDING ALIGNMENT XR KNEE RT 1V EXAM: XR STANDING ALIGNMENT CLINICAL HISTORY: 1ST POST OP R TKA. TECHNIQUE: 2D digital imaging was performed. Standing AP views were performed from the pelvis throu gh the ankles. COMPARISON: CR XR STANDING ALIGNMENT from 05/11/2024 CR XR KNEE RT 1V from 06/05/2024 FINDINGS: BONES: No acute fracture is present. No bony destructive lesion is seen. Leg length discrepancy: No significant leg length discrepancy. JOINTS: Knees: Bilateral total knee prostheses show satisfactory alignment. The left knee prosthes is appears unchanged. The right knee prosthesis has been placed since the prior exam. The ankle joints are unremarkable. The hip joints are unremarkable. SOFT TISSUE: Vascular calcifications. IMPRESSION: Bilateral total knee prostheses. No significant leg length discrepancy. DATA REPOSITORY: RADIATION DOSE DELIVERED:
== END 2024-06-05 11:42 | disposition home or self-care (01) ==
LOC: DIORS 11:41
PROVIDERS: PCP Neuromusculoskeletal Medicine & OMM; Visit Provider Student in an Organized Health Care Education/Training Program
DX: Z96.651 Presence of right artificial knee joint (principal); Z47.1 Aftercare following joint replacement surgery
CPT/HCPCS: 73560; 77073

== ENCOUNTER 2024-06-13 20:53 | Outpatient (REF) | payer MEDICARE, BC, SELFPAY | END 2024-06-13 20:54 | disposition home or self-care (01) | LOC: LBN 20:53 | PROVIDERS: PCP Neuromusculoskeletal Medicine & OMM; Visit Provider Nurse Practitioner Family | DX: N30.00 Acute cystitis without hematuria (principal) | CPT/HCPCS: 87086 ==

== ENCOUNTER → 2024-07-03 10:08 | Outpatient (BNVA) | payer MEDICARE, BC, SELFPAY | PROVIDERS: PCP Neuromusculoskeletal Medicine & OMM; Visit Provider Student in an Organized Health Care Education/Training Program | DX: Z47.1 Aftercare following joint replacement surgery (principal); Z96.651 Presence of right artificial knee joint | CPT/HCPCS: 99024 ==

== ENCOUNTER → 2024-08-14 13:52 | Outpatient (BNVA) | payer MEDICARE, BC, SELFPAY | PROVIDERS: PCP Neuromusculoskeletal Medicine & OMM; Referring Provider Neuromusculoskeletal Medicine & OMM; Visit Provider Student in an Organized Health Care Education/Training Program | DX: Z47.1 Aftercare following joint replacement surgery (principal); Z96.651 Presence of right artificial knee joint | CPT/HCPCS: 99024 ==

== ENCOUNTER 2025-05-09 01:39 | Outpatient (CLI) | payer MEDICARE, BC, SELFPAY ==
--- NOTE | 2025-05-09 12:30 | DI.US_ITS ---
APPROVED REPORT EXAM: Comprehensive 2D, Doppler, and color-flow Echocardiogram Patient Location: Out-Patient School Resource Officer: Emily Lyons RDCS (AE) Rhythm: Bradycardia Indications: Aortic valve calcification Other Information Study Quality: Adequate Conclusion Normal left ventricular wall thickness and chamber size. Ejection fraction is 60 to 65%. Wall motion is normal Normal right ventricular size and function Both atria are mildly enlarged Aortic valve is calcified and trileaflet. There is mild aortic stenosis (mean gradient 11 mmHg) and mild aortic regurgitation Mild mitral annular calcification. Mild mitral regurgitation Mild tricuspid regurgitation. Estimated right ventricular systolic pressure is 24 mmHg Ascending aorta measures 4.21 cm Wall motion Left Ventricle The left ventricle is normal size. The left ventricular systolic function is normal. The left ventricular ejection fraction is within the normal range. There is normal left ventricular wall thickness. There is normal LV segmental wall motion. There is no ventricular septal defect visualized. LVEF is 60%. Right Ventricle The right ventricle is normal size. The right ventricular systolic function is normal. Atria Left atrium is mildly dilated. Right atrium is mildly dilated. The interatrial septum is intact with no evidence for an atrial septal defect. Aortic Valve Aortic valve is calcified. Aortic valve is trileaflet. Mean gradient is 11 mmHg Mild aortic stenosis. Mild aortic regurgitation. Mitral Valve Mild mitral annular calcification. No evidence of mitral valve stenosis. Mild mitral regurgitation. Tricuspid Valve The tricuspid valve is normal in structure. There is no tricuspid valve stenosis. Mild tricuspid regurgitation. The RVSP is 24.4 mmHg. Pulmonic Valve The pulmonary valve is normal in structure. There is no pulmonic valvular stenosis. Trace to mild pulmonic regurgitation. Great Vessels Aortic root is moderately dilated. The ascending aorta is moderately dilated. IVC is normal in size and collapses >50% with inspiration. Pericardium There is no pericardial effusion. 2D Dimensions IVSD d PLAX 0.90 cm M: 0.6-1.2 Ao Root d 4.32 cm M: 3.1 - 3.7 LVPW d PLAX 0.93 cm M: 0.6 - 1.2 Ao Asc Diam d 4.21 cm M: 2.6 - 3.4 LVID d PLAX 4.90 cm M: 4.2 - 5.8 LVDs 3.33 cm M: 2.5 - 4.0 LV EF Teichholz 60.0 % FS 32.00 % LV EDV (Teich) 112.8 mL LV ESV (Teich) 45.1 mL M-Mode TAPSE 2.42 cm (M/F) >1.7 Auto EF LV EDV A4C 155.4 mL LV EDV A2C 187.1 mL LV EDV BP 171.4 mL LV ESV A4C 60.2 mL LV ESV A2C 73.0 mL LV ESV BP 66.0 mL LVEF(%) A4C 61.3 % LVEF(%) A2C 61.0 % LVEF(%) BP 61.5 % LV SV A4C 95.2 ml LV SV A2C 114.1 ml LV SV BP 105.5 ml LV CO A4C 3.9 L/min LV CO A2C 3.8 L/min LV CO BP 3.8 L/min HR A4C 40.58 BPM HR A2C 32.97 BPM LV EDV Index (BP) LA Volume LA Length A4C 5.5 cm LA Length A2C 5.7 cm LA Area A4C s 20.46 cm2 LA Area A2C s 28.73 cm2 LA Vol A4C A-L 64.49 mL LA Vol A2C A-L 122.94 mL LA Vol Biplane A- L 90.6 mL LA Vol/BSA A4C A-L LA Vol/BSA A2C A-L LA Vol/BSA BP A-L 41.3 mL/m2 LA Vol A4C MOD 61.1 mL LA Vol A2C MOD 113.3 mL LA Vol BP MOD 83.5 mL RA Volume RA Area A4C 19.9 cm2 RA ESV A4C (A-L) 52.3mL RA Vol/BSA A4C A-L RA Length A4C 6.4 cm RA ESV A4C (MOD) 48.1mL LV Diastology MV E' medial 0.066 (>0.07 m/s) MV E Vmax 0.48 (0.4-1.3 m/s) MV E/E' MED 7.30 (<14) MV A Vmax 0.80 (0.4-1.3 m/s) MV E' lateral 0.098 (>0.1 m/s) E/A Ratio 0.6 MV E/E' LAT 4.96 (<14) MV E' Average 0.082 m/s MV E/E'(average) 5.91 Aortic Valve AoV Vmax 2.14 m/s LVOT Vmax 1.07 m/s AoV Peak Grad 37.5 mmHg LVOT Peak Grad 4.6 mmHg AoV Area (Vmax) 1.73 cm2 LVOT VTI 0.242 m AoV VTI 0.515 m LVOT Mean Grad 2.6 mmHg AoV Mean Renny. 1.52 m/s LVOT SV 83.78 mL AoV Mean Grad 10.5 mmHg LVOT Diam s 2.05 cm AoV Area (VTI) 1.63 cm2 AV Regurg Peak Gr. 18.36 mmHg Velocity Ratio 0.50 AR Decel [place] 0.5m/sec2 AR DT 6963 msec AR PHT 2019 msec AR Vmax 3.76 m/s Mitral Valve MV DT 366 (160-240 msec) MV Vmax TIPS 0.85 m/s MV Mean Grad 0.9 (<2mmHg) MV VTI 0.414 m Pulmonary Valve PV Vmax 1.12 (0.5-1.5 m/s) RVOT Vmax 0.59 m/s PV Peak Grad 5.1 mmHg RVOT Peak Gr. 1.4 mmHg PV Mean Renny 0.65 m/s RVOT VTI 0.148 m PV Mean Grad 2.0 mmHg RVOT Mean Gr. 0.6 mmHg Tricuspid Valve RA Pressure 3.00 mmHg TR Vmax 2.31 m/s TR Peak Grad 21.3 mmHg RVSP (TR) 24.4 mmHg
== END 2025-05-09 01:59 ==
PROVIDERS: PCP Neuromusculoskeletal Medicine & OMM; Visit Provider Registered Nurse
DX: I35.9 Nonrheumatic aortic valve disorder, unspecified (principal)
CPT/HCPCS: 93306

== ENCOUNTER 2025-06-08 11:45 | Outpatient (CLI) | payer MEDICARE, BC, SELFPAY ==
--- NOTE | 2025-06-08 10:45 | DI.RAD_ITS ---
Exam(s) XR KNEE RT 2V AP,LAT EXAM: XR KNEE RT 2V AP,LAT CLINICAL HISTORY: ANNUAL F/U R TKA. TECHNIQUE: 2D digital imaging was performed. COMPARISON: CR XR KNEE RT 1V from 06/05/2024 CR XR STANDING ALIGNMENT from 06/05/2024 FINDINGS: Two views Satisfactory position alignment of the components of the right knee prosthesis. No fracture or loosening evident. No evidence of osteomyelitis. IMPRESSION: Stable satisfactory appearance. DATA REPOSITORY: RADIATION DOSE DELIVERED:
== END 2025-06-08 11:46 | disposition home or self-care (01) ==
LOC: DIORS 06-11 09:44
PROVIDERS: PCP Neuromusculoskeletal Medicine & OMM; Visit Provider Physician Assistant
DX: Z47.1 Aftercare following joint replacement surgery (principal); Z96.651 Presence of right artificial knee joint
CPT/HCPCS: 99212; 73560